=== PATIENT | female | born 1995 | race Caucasian/White ===

== ENCOUNTER 2018-01-04 18:02 | Emergency (ER) | payer OTHER ==
[2018-01-04 19:11] LABS: ABS Basophils 0.1 10^3/ul (0-0.2); ABS Eosinophils 0.1 10^3/ul (0-0.6); ABS Lymphocytes 0.9 10^3/ul (1.0-4.8); ABS Monocytes 0.9 10^3/ul (0-0.8); ABS Neutrophils 11.5 10^3/ul (1.5-7.7); ABS Nucleated RBC 0 10^3/ul; Eosinophil % 0.4 % (0-6); Hematocrit 37 % (35-47); Hemoglobin 12.3 g/dl (12.0-16.0); Lymphocyte % 6.8 % (25-47); Mean Corpuscular HGB Conc 33 g/dl (31-36); Mean Corpuscular Hemoglobin 30 pg (27-31); Mean Corpuscular Volume 90 fL (80-97); Mean Platelet Volume 10.4 um3 (7.4-10.4); Nucleated Red Blood Cells % 0; Platelet Count 233 10^3/ul (150-450); Red Blood Count 4.13 10^6/ul (4.00-5.40); Red Cell Distribution Width 14 % (10.5-15); White Blood Count 13.3 10^3/ul (3.5-10.8)
[2018-01-04 19:23] LABS: EGFR Non-African American 108.5 (>60)
[2018-01-04] MEDS ORDERED: cefTRIAXone(*) 1 GM in NS 0.9% 50 ML* 50 ML IVPB ONE (20:33)
[2018-01-04] MEDS ORDERED: NS 0.9% 1000 ML* 1,000 ML IV ONE (21:16)
--- NOTE | 2018-01-04 21:45 | ED ---
GI/ HPI - HPI Summary HPI Summary: 22 year old female presents with dysuria and flank pain for the past couple days. She states that it started on Thursday with dysuria. She stated that this has gotten worse. She denies any fevers. No nausea vomiting. No diarrhea constipation. No abnormal vaginal discharge. She has history of pelvic issues. She denies any history of pyelol but has history of UTIs. She had a urine to urgent care that was positive for UTI and was sent here for antibiotics. no hx of DM or kidney issues. sister history of pyelo. - History of Current Complaint Chief Complaint: EDUrogenitalProblems Time Seen by Provider: 01/04/18 20:32 Stated Complaint: LT SIDE PAIN AND BACK Pain Intensity: 8 - Allergy/Home Medications Allergies/Adverse Reactions: Allergies Allergy/AdvReac Type Severity Reaction Status Date / Time No Known Allergies Allergy Verified 01/04/18 18:15 PMH/Surg Hx/FS Hx/Imm Hx Endocrine/Hematology History: Denies: Hx Anticoagulant Therapy Respiratory History: Denies: Hx Asthma Infectious Disease History: No Infectious Disease History: Denies: Traveled Outside the [place] in Last 30 Days - Family History Known Family History: Positive: Renal Disease - Social History Substance Use Type: Reports: None Smoking Status (MU): Never Smoked Tobacco Review of Systems Negative: Fever Negative: Chest Pain Negative: Shortness Of Breath Positive: Abdominal Pain. Negative: Vomiting, Diarrhea, Nausea Positive: dysuria, flank pain All Other Systems Reviewed And Are Negative: Yes Physical Exam Triage Information Reviewed: Yes Vital Signs On Initial Exam: Initial Vitals Temp Pulse Resp BP Pulse Ox 99.4 F 134 18 133/65 99 01/04/18 18:14 01/04/18 18:14 01/04/18 18:14 01/04/18 18:14 01/04/18 18:14 Vital Signs Reviewed: Yes Appearance: Positive: Well-Appearing Skin: Positive: Warm, Dry Head/Face: Positive: Normal Head/Face Inspection Eyes: Positive: Normal, Conjunctiva Clear ENT: Positive: Pharynx normal Respiratory/Lung Sounds: Positive: Clear to Auscultation, Breath Sounds Present Cardiovascular: Positive: Normal, RRR Abdomen Description: Positive: Soft, CVA Tenderness (L), Other: - mild suprapubic tenderness Bowel Sounds: Positive: Present Musculoskeletal: Positive: Normal Neurological: Positive: Normal Psychiatric: Positive: Normal Diagnostics - Vital Signs Vital Signs Temp Pulse Resp BP Pulse Ox 01/04/18 20:22 98.6 F 115 16 114/68 99 01/04/18 18:14 99.4 F 134 18 133/65 99 - Laboratory Lab Results: Lab Results 01/04/18 01/04/18 01/04/18 Range/Units 18:57 18:57 18:57 WBC 13.3 H (3.5-10.8) 10^3/ul RBC 4.13 (4.00-5.40) 10^6/ul Hgb 12.3 (12.0-16.0) g/dl Hct 37 (35-47) % MCV 90 (80-97) fL MCH 30 (27-31) pg MCHC 33 (31-36) g/dl RDW 14 (10.5-15) % Plt Count 233 (150-450) 10^3/ul MPV 10.4 (7.4-10.4) um3 Neut % (Auto) 85.9 H (38-83) % Lymph % (Auto) 6.8 L (25-47) % [place] % (Auto) 6.4 (0-7) % Eos % (Auto) 0.4 (0-6) % Baso % (Auto) 0.5 (0-2) % Absolute Neuts (auto) 11.5 H (1.5-7.7) 10^3/ul Absolute Lymphs (auto) 0.9 L (1.0-4.8) 10^3/ul Absolute Monos (auto) 0.9 H (0-0.8) 10^3/ul Absolute Eos (auto) 0.1 (0-0.6) 10^3/ul Absolute Basos (auto) 0.1 (0-0.2) 10^3/ul Absolute Nucleated RBC 0 10^3/ul Nucleated RBC % 0 Sodium 135 (135-145) mmol/L Potassium 3.9 (3.5-5.0) mmol/L Chloride 101 (101-111) mmol/L Carbon Dioxide 27 (22-32) mmol/L Anion Gap 7 (2-11) mmol/L BUN 7 (6-24) mg/dL Creatinine 0.69 (0.51-0.95) mg/dL Est GFR ( Amer) 131.2 (>60) Est GFR (Non-Af Amer) 108.5 (>60) BUN/Creatinine Ratio 10.1 (8-20) Glucose 112 H (70-100) mg/dL Lactic Acid 1.6 (0.5-2.0) mmol/L Calcium 9.7 (8.6-10.3) mg/dL Total Bilirubin 0.20 (0.2-1.0) mg/dL AST 11 L (13-39) U/L ALT 8 (7-52) U/L Alkaline Phosphatase 76 (34-104) U/L C-Reactive Protein 88.63 H (<8.01) mg/L Total Protein 8.3 (6.4-8.9) g/dL Albumin 4.5 (3.2-5.2) g/dL Globulin 3.8 (2-4) g/dL Albumin/Globulin Ratio 1.2 (1-3) Beta HCG, Quant < 0.60 mIU/mL Result Diagrams: 01/04/18 18:57 01/04/18 18:57 Lab Statement: Any lab studies that have been ordered have been reviewed, and results considered in the medical decision making process. Re-Evaluation - Re-Evaluation First Eval Re-Evaluation Time: 23:22 Comment: discussed results with patient GIGU Course/Dx - Course Course Of Treatment: 22 female presents with dysuria and flank pain for the past couple days. She states that it started on Thursday with dysuria. She stated that this has gotten worse. She denies any fevers. No nausea vomiting. No diarrhea constipation. No abnormal vaginal discharge. She has history of pelvic issues. She denies any history of pyelol but has history of UTIs. She had a urine to urgent care that was positive for UTI and was sent here for antibiotics. no hx of DM or kidney issues. sister history of pyelo. On exam tenderness C knee and left hand seemed to be the. With blood cell count elevated. Urine shows a UTI. gave dose of Rocephin. Will treat with Cipro. Patient understands and agrees with plan. - Diagnoses Differential Diagnoses - Female: Pyelonephritis, Urinary Tract Infection, Ureteral Calculi Provider Diagnoses: Pyelonephritis Discharge - Sign-Out/Discharge Documenting (check all that apply): Patient Departure - Discharge Plan Condition: Good Disposition: HOME Prescriptions: Ciprofloxacin TAB* [Cipro 500 MG TAB*] 500 mg PO BID #20 tab Patient Education Materials: Kidney Infection (ED) Referrals: Fanny Garcia MD [Primary Care Provider] - Additional Instructions: Take antibiotic twice a day for 10 days, starting tomorrow Drink plenty of water Use alternative forms of control Take Tylenol or ibuprofen every 6 hours as needed for pain and fever Return to ED if develop severe vomiting, or any new or worsening symptoms - Billing Disposition and Condition Condition: GOOD Disposition: Home
[2018-01-04 22:38] LABS: Urine Appearance Clear; Urine Blood 2+ (Negative); Urine Color Straw; Urine Ketones Negative (Negative); Urine Protein Negative (Negative); Urine Red Blood Cell 1+(3-5/hpf) (Absent); Urine Specific Gravity 1.005 (1.010-1.030); Urine Urobilinogen Negative (Negative); Urine White Blood Cell 3+(>20/hpf) (Absent)
[2018-01-05 00:22] VITALS: BP 115/63
--- NOTE | 2018-01-07 09:47 | PN ---
Progress Note - Progress Note Date of Service: 01/07/18 Note: Pt. seen in ER 01/04 and started on Cipro for a UTI. Culture today is growing > 100,000 staphylococcus saprophyticus that is susceptible to fluoroquinolones. No change in treatment needed at this time.
== END 2018-01-05 00:21 | disposition home or self-care (01) ==
LOC: ED 18:02
DX: N12 Tubulo-interstitial nephritis, not specified as acute or chronic (principal); R10.84 Generalized abdominal pain; R30.0 Dysuria
CPT/HCPCS: 36415; 80053; 81003; 81015; 83605; 84702; 85025; 86140; 87077; 87086; 96365; 99282; J0696